=== PATIENT | female | born 1960 | race Caucasian/White ===

== ENCOUNTER 2017-11-29 07:51 | Inpatient (IN) | payer OTHER ==
[~2017-11-29] VITALS: Ht 167.6 cm; Wt 108.9 kg
[2017-11-29 08:04] VITALS: BP 144/64
[2017-11-29] MEDS ORDERED: OXYCONTIN20 M1 PO (08:07)
[2017-11-29] MEDS ORDERED: PROZAC20 MG PO (08:07)
[2017-11-29] MEDS ORDERED: MOBIC7.5 MG PO (08:07)
[2017-11-29] MEDS ORDERED: VITAMIN D2000 UNI1 PO (08:08)
[2017-11-29] MEDS ORDERED: FIBER GUMMIES1 EACH PO (08:08)
[2017-11-29] MEDS ORDERED: GRALISE600 MG PO (08:08)
[2017-11-29] MEDS ORDERED: ZINC CHELATE50 MG PO (08:09)
[2017-11-29] MEDS ORDERED: AMITRIPTYLINE H10 M3 PO (08:09)
[2017-11-29] MEDS ORDERED: SUPER B COMPLE150 MG PO (08:09)
[2017-11-29 08:23] LABS: HEMATOCRIT 39.6 % (37.0-47.0); HEMOGLOBIN 13.2 gm/dL (12.0-15.0); MCH 29.2 pg (26.0-34.0); MCHC 33.3 g/dL (28.0-37.0); MCV 87.5 fL (80.0-100.0); MPV 8.2 fl. (7.2-11.1); NUCLEATED RBCS 0 /100WBC; PLATELET COUNT* 215 thou/uL (150-400); RBC 4.52 mil/uL (4.20-5.00); WBC 14.9 thou/uL (4.0-11.0)
[2017-11-29 08:25] LABS: URINE BILIRUBIN NEGATIVE (Negative); URINE BLOOD NEGATIVE (Negative); URINE CLARITY CLEAR; URINE COLOR YELLOW; URINE GLUCOSE-RANDOM NEGATIVE (Negative); URINE KETONES NEGATIVE (Negative); URINE LEUKOCYTES-REFLEX NEGATIVE (Negative); URINE NITRITE-REFLEX NEGATIVE (Negative); URINE PROTEIN NEGATIVE (Negative); URINE UROBILINOGEN 0.2 E.U./dl (0.2-1.0)
[2017-11-29 08:27] LABS: CALCIUM 9.1 mg/dL (8.5-10.1); CREATININE 1.2 mg/dL (0.6-1.3); POTASSIUM 4.2 mmol/L (3.5-5.1)
[2017-11-29 08:32] LABS: TOTAL BILIRUBIN 0.3 mg/dL (<0.1-1.0); TOTAL PROTEIN 7.8 g/dL (6.4-8.2)
[2017-11-29 08:46] LABS: ABSOLUTE EOSINOPHILS 0.1 thou/uL (0.0-0.7); ABSOLUTE LYMPHOCYTES 1.5 thou/uL (0.8-5.3); ABSOLUTE NEUTROPHILS 12.2 thou/uL (1.6-8.1); PLATELET ESTIMATE ADEQUATE
--- NOTE | 2017-11-29 09:40 | NUR ---
KEO NOTIFIED UPON PT RETURN FROM CT. PT CONNECTED TO O2, PULSE OX AND BP MONITORS
--- NOTE | 2017-11-29 11:08 | EKG ---
[place] [address] ELECTROCARDIOGRAM REPORT Name: GERMAN KOEHLER Room: [facility]#: [id number] Admission: 11/29/17 Attend Phys: Discharge: Date of : 64 Report #: [id number] THIS REPORT FOR: //name// [facility] ED Test Date: 2017-11-29 Test Time: 08:31:25 Pat Name: GERMAN KOEHLER Department: Room: Gender: F Rehabilitation Manager: Anurag VALENCIA : 1960 Requested By: Simon Hathaway Order Number: [id number] MD: William Allen Measurements Intervals [place]mond Rate: 100 P: 42 FL: 131 QRS: 16 QRSD: 94 T: 20 QT: 336 QTc: 434 Interpretive Statements Sinus tachycardia Probable left atrial enlargement Low voltage, precordial leads No previous ECG available for comparison Electronically Signed On 11-29-2017 11:08:35 CAR [employer] by William Allen [email or web address] <ELECTRONICALLY SIGNED> By: William Allen MD, [facility] 11/29/17 1108 0831 0 William Allen MD, FACC /EPI
[2017-11-29 13:46] VITALS: BP 127/77
[2017-11-29 14:00] VITALS: BP 132/62
--- NOTE | 2017-11-29 14:09 | NUR ---
PATIENT ADMITTED FROM ER TO ROOM 108. ALERT AND ORIENTED. PAIN 10/10. STATES MORPHINE IS NOT WORKING. DR. BARRON NOTIFIED. PATIENT HAD MORPHINE PRIOR TO TRANSFER. IVF INFUSING ORDERED. ADMISSION HISTORY AND ASSESSMENT CHARTED. ORIENTED TO ROOM AND ENVIROMENT. EDUCATED ON FALL PREVENTION. O2 AT 2L. FAMILY AT BEDSIDE. WILL CONTINUE TO MONITOR.
--- NOTE | 2017-11-29 15:10 | NUR ---
VILLA PLACED FOR RETENTION. 1000 MLS EMPTIED AFTER PATIENT HAD VOIDED IN TOILET.
[2017-11-29 16:00] VITALS: BP 136/58
--- NOTE | 2017-11-29 16:50 | NUR ---
NOTIFIED GENERAL SURGERY RESIDENT THAT PATIENT WAS STILL IN SEVERE PAIN. PAIN MEDICATION HAD BEEN CHANGED TO DILAUDID WHICH DID NOT PROVIDE ANY RELIEF. VILLA HAS ALSO BEEN PLACED. PER DR. REHMAN, DR. DELEON WILL BE ROUNDING THIS EVENING. WILL CONTINUE TO MONITOR.
--- NOTE | 2017-11-29 18:32 | NUR ---
NOTIFIED PAIN IS NOT CONTROLLED ON 1MG OF DILAUDID. ORDERS TO INCREASE TO 2MG. WILL CONTINUE TO MONITOR.
--- NOTE | 2017-11-29 19:14 | NUR ---
TEMP 101.0, DR. BARRON NOTIFIED.
[2017-11-29 20:40] VITALS: BP 141/87
[2017-11-29 21:11] LABS: GLYCOHEMOGLOBIN (HGB A1C) 5.6 % (4.8-5.6)
[2017-11-30 05:07] LABS: ABSOLUTE LYMPHOCYTES 0.8 thou/uL (0.8-5.3); ABSOLUTE MONOCYTES 0.9 thou/uL (0.0-1.2); ABSOLUTE NEUTROPHILS 18.8 thou/uL (1.6-8.1); BASOPHILS 0.1 %; HEMATOCRIT 37.1 % (37.0-47.0); HEMOGLOBIN 11.9 gm/dL (12.0-15.0); MCH 28.7 pg (26.0-34.0); MCV 89.6 fL (80.0-100.0); MONOCYTES 4.3 %; MPV 8.5 fl. (7.2-11.1); NUCLEATED RBCS 0 /100WBC; PLATELET COUNT* 196 thou/uL (150-400); POLYS 91.6 %; RBC 4.14 mil/uL (4.20-5.00); RDW-CV 13.2 % (10.5-14.5); WBC 20.5 thou/uL (4.0-11.0)
[2017-11-30 05:38] LABS: ALBUMIN 3.5 g/dL (3.4-5.0); CALCIUM 8.5 mg/dL (8.5-10.1); CREATININE 0.9 mg/dL (0.6-1.3); POTASSIUM 4.2 mmol/L (3.5-5.1); TOTAL BILIRUBIN 0.5 mg/dL (<0.1-1.0); TOTAL PROTEIN 6.8 g/dL (6.4-8.2)
--- NOTE | 2017-11-30 08:06 | NUR ---
PATIENT HAS HAS C/O PAIN THROUGHOUT THE NIGHT. PAIN MEDICATION GIVEN ORDERED AND CHARTED. PATIENT HAS ALSO HAD SOME NAUSEA AND VOMITING. NAUSEA MEDICATION GIVEN. PATIENT HAS REMAINED NPO SINCE MIDNIGHT AND HAS HAD NO PAIN MEDICATIONS AT LEAST 4 HRS PRIOR TO PIPIDA SCAN THAT IS SCHEDULED THIS AM. VSS ON 2L 02 VIA NASAL CANNULA, ALTHOUGH PULSE TACHY. VILLA TO DEPENDENT DRAINAGE WITH CLEAR/YELLOW COLORED URINE OUTPUT.IV IN RIGHT AC-NS @ 150ML/HR. PATIENT INSTRUCTED TO USE CALL LIGHT WHEN NEEDING ASSISTANCE. HOURLY ROUNDS MADE. WILL CONTINUE WITH PLAN OF CARE AND NURSING TO MONITOR.
[2017-11-30 08:14] VITALS: BP 138/74
--- NOTE | 2017-11-30 12:50 | NUR ---
PATIENT RETURNED FROM PIPIDA SCAN. CRYING. CONTINUES TO REPORT SEVERE RLQ. SURGERY RESIDENT NOTIFIED OF SEVERE PAIN AND PIPIDA RESULTS. PATIENT DOES NOT ASK FOR PAIN MEDICATION. SHE IS USUALLY JUST FOUND DOUBLED OVER IN PAIN CRYING IN THE BED, OR STANDING AT EDGE OF BED.
--- NOTE | 2017-11-30 13:15 | NUR ---
SURGERY RESIDENT ON FLOOR- DR. REHMAN. INFORMED OF CONTINUED PAIN, AND INABILITY TO SIT IN BED AND REST. DR. REHMAN WILL NOTIFY DR. DELEON. DILAUDID, OXYCONTIN, AND GABAPENTIN GIVEN WITH A SIP OF WATER.
--- NOTE | 2017-11-30 15:23 | NUR ---
PT.OFF FLOOR FOR CT. WILL SEE AT ANOTHER TIME.
--- NOTE | 2017-11-30 16:16 | NUR ---
CT RESULTS CALLED TO GENERAL SURGERY. WILL CONTINUE TO MONITOR.
--- NOTE | 2017-11-30 16:37 | NUR ---
GENERAL SURGERY CALLED BACK AND MADE PATIENT NPO. PATIENT TO REMAIN ON IV ABX FOR POSSIBLE ENTERITIS. WE MAY PLACE NG IF PATIENT VOMITS AGAIN. REPEAT XRAY IN AM. PATIENT INFORMED OF THESE ORDERS. WILL CONTINUE TO MONITOR.
[2017-11-30 16:54] VITALS: BP 140/93
--- NOTE | 2017-11-30 17:00 | NUR ---
PATIENT REMAINS ALERT AND ORIENTED. IVF INFUSING ORDERED. STILL RATES PAIN 8-10/10. DILAUDID 2MG EVERY 4 HOURS. AMBULATES AD OZZY. VILLA REMAINS IN PLACE DUE TO RETENTION. AFEBRILE. O2 SAT 92% ON RA. NPO. MOUTH SWABS PROVIDED. CALL LIGHT WITHIN REACH. WILL CONTINUE TO MONITOR.
[2017-12-01 01:15] VITALS: BP 136/77
[2017-12-01 07:50] VITALS: BP 144/83
[2017-12-01 08:00] VITALS: BP 144/83
[2017-12-01 08:08] LABS: ABSOLUTE EOSINOPHILS 0.1 thou/uL (0.0-0.7); ABSOLUTE LYMPHOCYTES 1.3 thou/uL (0.8-5.3); ABSOLUTE MONOCYTES 0.6 thou/uL (0.0-1.2); ABSOLUTE NEUTROPHILS 10.4 thou/uL (1.6-8.1); BASOPHILS 0.2 %; EOSINOPHILS 0.7 %; LYMPHOCYTES 10.8 %; MCH 28.7 pg (26.0-34.0); MCHC 32.3 g/dL (28.0-37.0); MCV 89.1 fL (80.0-100.0); MPV 7.9 fl. (7.2-11.1); NUCLEATED RBCS 0 /100WBC; PLATELET COUNT* 177 thou/uL (150-400); POLYS 83.3 %; RBC 3.82 mil/uL (4.20-5.00); RDW-CV 13.3 % (10.5-14.5); WBC 12.5 thou/uL (4.0-11.0)
--- NOTE | 2017-12-01 08:20 | NUR ---
PATIENT HAS SLEPT WELL THROUGHOUT THE NIGHT. PAIN HAS BETTER CONTROLLED. PAIN MEDICATION GIVEN VIA IV AND CHARTED. NAUSEA MEDICATION GIVEN FOR C/O NAUSEA. PATIENT HAS VERY SMALL AMOUNT OF EMESIS X 1. PATIENT HAS REMAINED NPO. VILLA TO DEPENDENT DRAINAGE WITH YELLOW URINE OUTPUT. VSS ON RA. IV IN RIGHT AC-SL. IV IN LEFT HAND-NS @ 150ML/HR. IV ABT GIVEN WITHOUT ANY ADVERSE SIDE EFFECTS NOTED. PATIENT INSTRUCTED TO USE CALL LIGHT WHEN NEEDING ASSISTANCE. HOURLY ROUNDS MADE. WILL CONTINUE WITH PLAN OF CARE AND NURSING TO MONITOR.
[2017-12-01 08:26] LABS: CALCIUM 8.4 mg/dL (8.5-10.1); CREATININE 0.8 mg/dL (0.6-1.3); POTASSIUM 3.7 mmol/L (3.5-5.1)
[2017-12-01 12:57] VITALS: BP 152/88
[2017-12-01 15:36] VITALS: BP 151/86
--- NOTE | 2017-12-01 15:57 | NUR ---
I agree with inpatient nursing aide, Karen Peralta's, assessment and VS documentation.
--- NOTE | 2017-12-01 16:47 | NUR ---
PT.HAD JUST WALKED IN [place]. STATED SHE FEELS MUCH BETTER. SHE SAID SHE LIVES WITH HER AND THEIR 12 Y.O.GRANDSON LIVES WITH THEM. IS SUPPORTIVE. GRANDSON HELPS ALSO. SHE IS INDEPENDENT. DOES NOT USE ANY DME NOR HAD HH. PT.PLANS TO HAVE SURGERY AT A LATER DATE.
--- NOTE | 2017-12-01 18:39 | NUR ---
PATIENT HAS BEEN A/O X 4 THIS SHIFT. MEDICATED FOR ABDOMINAL PAIN X 1 WITH IV PAIN MEDS AT BEGINNING OF SHIF. PATIENT GIVEN ZOFRAN X 1 THIS AM, NO FURTHER NAUSEA THIS SHIFT. PATIENT UP AD OZZY IN ROOM. PATIENT'S VILLA CATHETER REMOVED AND ABLE TO URINATE AFTER CATHETER BEING DISCONTINUED. PATIENT HAVING BMs THIS SHIFT. PATIENT TAKING ICE CHIPS WITHOUT ANY DIFFICUTLY. WBC TRENDING DOWN. HAS BEEN AFEBRILE THIS SHIFT. STATES FEELING BETTER OVERALL. HOURLY ROUNDING COMPLETED. CALL LIGHT WITHIN REACH. WILL CONTINUE WITH PLAN OF CARE.
[2017-12-01 20:40] VITALS: BP 123/74
[2017-12-02 05:34] LABS: HEMATOCRIT 34.2 % (37.0-47.0); HEMOGLOBIN 11.1 gm/dL (12.0-15.0); MCH 29.1 pg (26.0-34.0); MCHC 32.4 g/dL (28.0-37.0); MCV 89.9 fL (80.0-100.0); MPV 7.8 fl. (7.2-11.1); RBC 3.8 mil/uL (4.20-5.00); RDW-CV 13.3 % (10.5-14.5); WBC 9.5 thou/uL (4.0-11.0)
[2017-12-02 05:56] LABS: CALCIUM 8.2 mg/dL (8.5-10.1); CREATININE 0.8 mg/dL (0.6-1.3)
--- NOTE | 2017-12-02 06:55 | NUR ---
PATIENT HAS SLEPT WELL THROUGHOUT THE NIGHT WITHOUT ANY ISSUES. PAIN WELL CONTROLLED. MEDICATIONS GIVEN ORDERED AND CHARTED. ASSESSENT CHARTED. VSS ON 2L 02 VIA NASAL CANNULA. NEW IV INSERTED IN RIGHT FOREARM- NS @ 150ML/HR. IV ABT GIVEN WITHOUT ANY ADVERSE SIDE EFFECTS NOTED. PATIENT STATES THAT SHE IS FEELING MUCH BETTER. PATIENT INSTRUCTED TO USE CALL LIGHT WHEN NEEDING ASSISTANCE. HOURLY ROUNDS MADE. WILL CONTINUE WITH PLAN OF CARE AND NURSING TO MONITOR.
[2017-12-02 08:00] VITALS: BP 140/82
[2017-12-02 15:54] VITALS: BP 139/88
--- NOTE | 2017-12-02 18:14 | NUR ---
ALERT AND ORIENTED X4. UP AD OZZY DURING AMBULATION. IV IS PATENT AND INFUSING. PAIN BEING MANAGED WITH PO PAIN MEDICATION. DENIES NAUSEA. TOLERATING FULL LIQUID DIET. VSS ON ROOM AIR. HOURLY ROUNDS HAVE BEEN MAINTAINED THROUGHOUT SHIFT. CALL LIGHT IS WITHIN REACH. NURSING WILL CONTINUE TO MONITOR.
[2017-12-02 19:30] VITALS: BP 140/87
[2017-12-03] MEDS ORDERED: BUTALB-APAP-CA1 EACH PO (02:37)
[2017-12-03 04:27] LABS: HEMATOCRIT 35.6 % (37.0-47.0); HEMOGLOBIN 11.6 gm/dL (12.0-15.0); MCH 28.8 pg (26.0-34.0); MCHC 32.5 g/dL (28.0-37.0); MCV 88.7 fL (80.0-100.0); MPV 7.2 fl. (7.2-11.1); RBC 4.01 mil/uL (4.20-5.00); RDW-CV 13.2 % (10.5-14.5); WBC 7.1 thou/uL (4.0-11.0)
[2017-12-03 04:41] LABS: CALCIUM 8.1 mg/dL (8.5-10.1); CREATININE 0.8 mg/dL (0.6-1.3); POTASSIUM 3.4 mmol/L (3.5-5.1)
--- NOTE | 2017-12-03 04:49 | NUR ---
PATIENT HAS REMAINED ALERT AND ORIENTED X 4 THROUGHOUT THE SHIFT AND RESTING QUIETLY AT HOURLY ROUNDS. HAS DENIED ABDOMINAL PAIN. STATED HEADACHE WITH ORAL MEDS FOR HEADACHE X 1. DENIES NAUSEA. STATED BM YESTERDAY. VOIDING WITHOUT DIFFICULTY. UP INDEPENDENTLY IN THE ROOM. VITAL SIGNS STABLE. REACHING DISCHARGE GOALS. CONTINUE TO MONITOR.
[2017-12-03 08:03] VITALS: BP 137/86
[2017-12-03 16:00] VITALS: BP 156/87
--- NOTE | 2017-12-03 17:00 | NUR ---
PT.WAS TO DISCHARGE TODAY WITH HOME O2. R.T. SATS SHOWED PT.NEEDED 4L/NC WITH EXERCISE. SAT ALSO WAS LOW AT REST BUT DID NOT QUALIFY FOR O2. HAD SPOKEN WITH [facility] [phone]. SHE SAID THEY DO ACCEPT PT.'S INSURANCE. NOTIFIED OF SATURATIONS AND DISCHARGE WAS CANCELLED. NOTIFIED [facility]LD[facility].
--- NOTE | 2017-12-03 17:25 | NUR ---
ASSUMED CARE OF PATIENT AFTER REPORT THIS MORNING. PATIENT AWAKE, ALERT, AND ORIENTED APPROPRIATELY. PHYSICAL ASSESSMENT COMPLETED AND CHARTED. NO COMPLAINTS OF PAIN THIS SHIFT. SCHEDULED MEDICATIONS GIVEN, SEE EMAR FOR DOCUMENTATION. VITAL SIGNS STABLE. OXYGEN SATURATION WITHIN NORMAL LIMITS ON 2.5 LPM. COMPLETED REST AND EXERCISE OXIMETRY TEST TODAY WITH RESPIRATORY THERAPY. OXYGEN SATURATION DROPPED TO 82% WITHOUT OXYGEN DURING EXERCISE. PHYSICIAN NOTIFIED AND DISCHARGE CANCELLED. PATIENT NOW REQUIRES TO WEAR OXYGEN ALL THE TIME. PULMONOLOGY CONSULTED. CHEST XRAY OBTAINED. PATIENT TRANSFERS AND AMBULATES INDEPENDENTLY IN ROOM WITHOUT DIFFICULTY. USES CALL LIGHT APPROPRIATELY. DENIES NEEDS. CALL LIGHT WITHIN REACH. NURSING WILL CONTINUE TO MONITOR.
[2017-12-03 21:00] VITALS: BP 157/103
[2017-12-04] VITALS: BP 138/99
[2017-12-04 03:49] VITALS: BP 146/97
--- NOTE | 2017-12-04 06:14 | NUR ---
UP AD OZZY IN ROOM WITH O2 AT 2L AT REST AND 4L WITH EXERCISE. BLOOD PRESSURE ELEVATED AT BEGINNING OF SHIFT AND DR NOTIFIED. DR SAID TO JUST MONITOR. LAST B/P THIS AM BETTER AT 146/97. PAIN MEDICATION GIVEN X2 FOR HEADACHE AND BACK PAIN. NAUSEA MEDICATION GIVEN THIS AM X1. O2 SAT 97 AT REST. CALL LIGHT WITHIN REACH.
--- NOTE | 2017-12-04 06:51 | CON ---
[address] [address] CONSULTATION Name: ZAKIAGERMAN L Room: [address] IN M.R.#: [id number] Admission: 11/29/17 Attend Phys: Chela Ryan Discharge: Date of : 64 Report #: [id number] THIS REPORT FOR: //name// CC: Lili Ontiveros DATE OF SERVICE: 12/03/2017 ATTENDING PHYSICIAN: Lili Arthur MD LOCATION: Room No. [address] [facility]. INDICATION FOR CONSULTATION: Abnormal chest x-ray and hypoxemia. HISTORY OF PRESENT ILLNESS: The patient is a 57-year-old female, a recent smoker, who quit 7 months ago. She was admitted to the hospital with abdominal pain. It started in the right upper quadrant. She had some nausea and no vomiting. Denies any diarrhea. She takes OxyContin for low back pain. The pain was sharp and severe. She had some gallstones. She passed the gallstone. Surgery was initially going to take the patient for cholecystectomy, but decided against it and her pain has subsided before she was going to be discharged home, this was several days ago. She was admitted on 11/29. Before the patient was going to be discharged today, her room air O2 sat was dropping somewhat and she did room air oximetry, went down to 82%. She is now 2-1/[address] abdomen, it appears she has a left hilar fullness of about 2.5 cm. No definite mass is noted. No other infiltrates or masses were noted on the lower cuts. Chest x-ray is pending at this time. The patient states she may have had a chest x-ray a year ago at her primary care physician's office as far as she knew was negative. She denies any fever, chills, sweats, unexplained weight loss or hemoptysis. PAST MEDICAL HISTORY: She has had chronic back pain. She has had previous laminectomies. She has had some mild hypertension. She has had no prior history of COPD, just recently has had cholelithiasis. OUTPATIENT MEDICATIONS: Include fluoxetine 20 mg daily, oxycodone 20 mg t.i.d., meloxicam 7.5 mg b.i.d., vitamin D3 2000 units daily, gabapentin 600 mg 6 times a day and amitriptyline 10 mg at bedtime. FAMILY HISTORY: Negative for premature cardiopulmonary disease. SOCIAL HISTORY: The patient is . She is a smoker of 1 to 1-1/2 packs a day, had a 35-50 pack year history of smoking, quit 7 months ago. Denies any alcohol or illicit drug use. States she is on disability. [place] [address] CONSULTATION Name: KAREN KOEHLERTEAGAN Martines Room: [address] IN [facility]#: [id number] Admission: 11/29/17 Attend Phys: Chela Ryan Discharge: Date of : 64 Report #: [id number] [facility]. She states she is on disability for chronic back pain. REVIEW OF SYSTEMS: A 14-point review of systems reviewed and negative except for pertinent positives noted in the HPI. She denies any asthma, COPD or obstructive sleep apnea. Occasionally, when she gets bronchitis once or twice a year, her physician will give her ProAir inhaler for that. PHYSICAL EXAMINATION: GENERAL: Pleasant, alert 57-year-old female on oxygen 2-1/2 liters in no acute distress. VITAL SIGNS: Blood pressure is 137/86, heart rate 84, respirations 16, temperature is 36.6 degrees. She is 5 feet 6 inches tall, weight is 109 kilograms or 230 pounds and BMI is 39. HEENT: Unremarkable. Nares and pharynx are clear. NECK: Supple without any cervical or supraclavicular adenopathy. Neck veins are flat. CHEST: Shows a few rhonchi in the left upper lobe anteriorly with prolonged expiratory phase. Left lower lobe otherwise is clear. Right chest is fairly clear. CARDIOVASCULAR: Regular rate and rhythm without murmur, gallop or rub. ABDOMEN: Obese without masses or megaly. EXTREMITIES: No calf tenderness. No cyanosis, clubbing or edema. NEUROLOGIC: Grossly intact. LABORATORY DATA: From today, hemoglobin 11.6, white count 7100, normal differential and platelets 216,000 and white count has come down the whole time she has been in the hospital. Her sodium is 145, potassium 3.4, being repleted. BUN 7, creatinine 0.8, estimated glucose 74, regular glucose is 112, calcium is 8.1. Room air sats started about 88-87%. She went down to 82% with ambulation about 100 feet and then on 2-1/2 liters she is right around 93%. Chest x-ray is pending. Abdominal pelvis CT, which I did get a look at shows some possible left hilar fullness at 2.5 cm. On the abdominal series, I do not really see the hilar adenopathy all that well. IMPRESSION: 1. Hypoxemia, etiology unclear, may have some mild obstructive airways disease. I do not think congestive heart failure. 2. Possible left hilar mass, the patient with smoking history. Plan: We will see what the chest x-ray shows, I may consider a CT chest and then proceed from there. If we need to do an outpatient fiberoptic bronchoscopy to rule out any endobronchial lesion and obtain specimens 3. Gallstones with abdominal pain. PLAN: Again await the chest x-ray, may need a CT of the chest then, probably may need to go on the oxygen 2-4 weeks if she continues to [place] [address] CONSULTATION Name: GERMAN KOEHLER Bobbi Room: [address] IN .R.#: [id number] Admission: 11/29/17 Attend Phys: Chela Ryan Discharge: Date of : 64 Report #: [id number] workup will include possibly even a CT angio of the chest to rule out occult DVT or pulmonary emboli and then also full PFTs as an outpatient as well as a sleep study. Rule out sleep apnea and/or COPD. If she does have a 2 cm left hilar mass, then she may need again either an inpatient or outpatient bronchoscopy. We will add some montelukast, some oral bronchodilators and see if she will clinically improve. Also on the CT chest, we will look and see and make sure she does not have any upper lobe emphysema from her previous smoking history. Thanks again for allowing us to participate in this lady's care. We will follow up along with you. Hopefully, she will just be in another day or two. <ELECTRONICALLY SIGNED> By: Clyde Ventura MD 12/04/17 0651 [id number] Ventura MD /nt
[2017-12-04 08:20] VITALS: BP 119/75
--- NOTE | 2017-12-04 11:55 | NUR ---
Following through dc. It Pt continues to require home o2, we will need a hard copy RX, that is signed and includes Drs NPI number. If Pt is ready to dc this weekend, the o2 order, H&P, current ex ox sats, and facesheet need to be faxed to [employer] at f:[phone], contact Maru at [employer] to arrange delivery of tank to Pt's room, her number is [phone]
[2017-12-04 16:00] VITALS: BP 128/58
--- NOTE | 2017-12-04 16:56 | NUR ---
PATIENT ALERT AND ORIENTED X 4. VITAL SIGNS STABLE ON 2L O2 NASAL CANULA. UP AD OZZY IN ROOM AND AMBULATING IN HALLWAY. PAIN BEING MANAGED WITH PO PAIN MEDICATIONS. REFUSES SCD'S. EDUCATED ON IMPORTANCE OF SCD'S. HOURLY ROUNDS MAINTAINED THROUGHOUT THE SHIFT. CALL LIGHT WITHIN REACH. NURSING WILL CONTINUE TO MONITOR.
[2017-12-04 21:40] VITALS: BP 141/90
--- NOTE | 2017-12-05 05:13 | NUR ---
ALERT AND ORIENTED X4. UP AD OZZY IN ROOM WITH O2 AT 2.5L/NC. O2 SAT AT REST 94%. C/O RLQ PAIN. PO AND IV PAIN MEDICATION GIVEN X2 AND HELPFUL. CALL LIGHT WITHIN REACH. WILL CONTINUE MONITOR.
[2017-12-05 08:00] VITALS: BP 122/75
--- NOTE | 2017-12-05 16:49 | NUR ---
PATIENT ALERT AND ORIENTED X 4. VITAL SIGNS STABLE. O2 SAT 95% ON ROOM AIR. OXYGEN IN ROOM, IF NEEDED. UP AD OZZY IN ROOM AND AMBULATING IN THE HALLWAY WITHOUT OXYGEN. IV PATENT AND SALINE LOCKED. PAIN BEING MANAGED WITH PO AND IV PAIN MEDICATIONS. PATIENT REFUSED SCD'S. EDUCATED ON THE IMPORTANCE OF SCD'S. HOURLY ROUNDS MAINTAINED THROUGHOUT THE SHIFT. CALL LIGHT WITHIN REACH. NURSING WILL CONTINUE TO MONITOR.
[2017-12-05 18:47] VITALS: BP 140/76
[2017-12-05 20:30] VITALS: BP 139/79
--- NOTE | 2017-12-06 05:25 | NUR ---
ALERT AND ORIENTED X4. UP AD OZZY IN ROOM WITHOUT DIFFICULTY. AMBULATED IN HALLWAYS WITHOUT DIFFICULTY OR C/O SOA. O2 SAT CHECKED AT REST 94% ON ROOM AIR. DENIES COUGH. MIRALAX GIVEN FOR C/O CONSTIPATON. PAIN MEDICATION GIVEN X2 FOR HEADACHE. CALL LIGHT WITHIN REACH.
[2017-12-06 08:49] VITALS: BP 120/76
[2017-12-06] MEDS ORDERED: FLOMAX0.4 MG PO (09:24)
[2017-12-06] MEDS ORDERED: SINGULAIR 10 MG10 M1 PO (09:25)
[2017-12-06] MEDS ORDERED: MIRALAX17 GM PO (09:47)
[2017-12-06 09:48] VITALS: BP 120/76
--- NOTE | 2017-12-06 10:04 | NUR ---
ASSUMED CARE OF PATIENT AFTER REPORT THIS MORNING. PATIENT AWAKE, ALERT, AND ORIENTED APPROPRIATELY. PHYSICAL ASSESSMENT COMPLETED AND CHARTED. NO COMPLAINTS OF PAIN. VITAL SIGNS STABLE. OXYGEN SATURATION WITHIN NORMAL LIMITS ON ROOM AIR. PATIENT HAS BEEN UP AD OZZY. GIVEN SCHEDULED MEDICATIONS, SEE EMAR FOR DOCUMENTATION. RECEIVED ORDERS TO DISCHARGE PATIENT TO HOME. DISCHARGE PAPERWORK COMPLETED AND CHECKED BY SECOND NURSE. WAITING FOR PATIENT'S RIDE TO DISCUSS DISCHARGE INSTRUCTIONS. IV DISCONTINUED. NURSING WILL CONTINUE TO MONITOR.
--- NOTE | 2017-12-06 10:26 | NUR ---
DISCUSSED DISCHARGE PAPERWORK WITH PATIENT. SIGNED BY ALL APPROPRIATE PARTIES. PATIENT DISCHARGED AT THIS TIME.
--- NOTE | 2017-12-06 14:42 | 2DMMODE ---
[place] [address] 2 D/M-MODE ECHOCARDIOGRAM Name: ZAKIAGERMAN Room: [address] IN [facility]#: [id number] Admission: 11/29/17 Attend Phys: Lili Arthur Discharge: 12/06/17 Date of : 64 Date of Service: 12/06/17 1442 Report #: [id number] THIS REPORT FOR: //name// APPROVED REPORT Study performed: 12/06/2017 09:39:01 EXAM: Comprehensive 2D, Doppler, and color-flow Echocardiogram Patient Location: In-Patient Room #: [facility] Status: routine BSA: 2.16 HR: 91 bpm BP: 120/76 mmHg Rhythm: NSR Other Information Study Quality: Good Indications Congestive Heart Failure 2D Dimensions LVEF(%): 59.20 (>50%) IVSd: 12.06 (7-11mm) LVOT Diam: 20.61 (18-24mm) LVDd: 49.00 mm PWd: 10.23 (7-11mm) Ascending Ao: 31.64 (22-36mm) LVDs: 33.58 (25-40mm) Aortic Root: 31.99 mm Vale's LVEF: 59.20 % Volumes Left Atrial Volume (Systole) LA ESV Index: 28.20 mL/m2 Aortic Valve AoV Peak Kevin.: 1.36 m/s AO Peak Gr.: 7.36 mmHg LVOT Max P.71 mmHg AO Mean Gr.: 4.26 mmHg LVOT Mean P.25 mmHg LVOT Max V: 1.09 m/s AO V2 VTI: 26.49 cm LVOT Mean V: 0.69 m/s DILIP (VTI): 2.56 cm2 LVOT V1 VTI: 20.31 cm Mitral Valve E/A Ratio: 1.03 [place] [address] 2 D/M-MODE ECHOCARDIOGRAM Name: GERMAN KOEHLER Room: [address]#: [id number] Admission: 11/29/17 Attend Phys: Lili Arthur Discharge: 12/06/17 Date of : 64 Date of Service: 12/06/17 1442 Report #: [id number] MV Decel. Time: 306.65 ms MV E Max Kevin.: 0.69 m/s MV PHT: 88.93 ms MVA (PHT): 2.47 cm2 TDI E/Lateral E': 6.27 E/Medial E': 5.75 Medial E' Kevin.: 0.12 m/s Lateral E' Kevin.: 0.11 m/s Pulmonary Valve PV Peak Kevin.: 0.94 m/s PV Peak Gr.: 3.54 mmHg Left Ventricle The left ventricle is normal size. There is normal LV segmental wall motion. There is normal left ventricular wall thickness. Left ventricular systolic function is normal. The left ventricular ejection fraction is within the normal range. LVEF is 60-65%. Grade I - abnormal relaxation pattern. Right Ventricle The right ventricle is normal size. The right ventricular systolic function is normal. Atria The left atrium size is normal. The right atrium size is normal. Aortic Valve The aortic valve is normal in structure. No aortic regurgitation is present. There is no aortic valvular stenosis. Mitral Valve The mitral valve is normal in structure. Mild mitral regurgitation. No evidence of mitral valve stenosis. Tricuspid Valve The tricuspid valve is normal in structure. Unable to assess PA pressure. Trace tricuspid regurgitation. Pulmonic Valve The pulmonary valve is normal in structure. There is no pulmonic valvular regurgitation. Great Vessels The aortic root is normal in size. IVC [place] [address] 2 D/M-MODE ECHOCARDIOGRAM Name: KOEHLERGERMAN Room: [address] IN M.R.#: [id number] Admission: 11/29/17 Attend Phys: Lili Arthur Discharge: 12/06/17 Date of : 64 Date of Service: 12/06/17 1442 Report #: [id number] collapses with >50% inspiration Pericardium There is no pericardial effusion. <Conclusion> The left ventricle is normal size. There is normal left ventricular wall thickness. Left ventricular systolic function is normal. The left ventricular ejection fraction is within the normal range. LVEF is 60-65%. Grade I - abnormal relaxation pattern. The right ventricle is normal size. The left atrium size is normal. The aortic valve is normal in structure. The mitral valve is normal in structure. Mild mitral regurgitation. The tricuspid valve is normal in structure. IVC is normal in size and collapses with >50% inspiration There is no pericardial effusion. There is normal LV segmental wall motion. <ELECTRONICALLY SIGNED> By: John Sharif MD, FACC 12/06/17 144 [id number] 144 John Sharif MD, FACC /INF
== END 2017-12-06 10:29 | disposition home or self-care (01) | DRG 371 ==
LOC: M.ERS 07:51 → M.ORTHSURG 12:42 → M.TBA-ER 12:42 → M.ORTHSURG 12:54
PROVIDERS: Emergency Medicine; Surgery; ADMIT Internal Medicine
PROC: B24BZZ4 Ultrasonography of Heart with Aorta, Transesophageal (ICD-10-PCS; principal; 2017-12-06)
DX: A04.9 Bacterial intestinal infection, unspecified (principal); J96.01 Acute respiratory failure with hypoxia; B17.9 Acute viral hepatitis, unspecified; N13.4 Hydroureter; J98.11 Atelectasis; R65.10 Systemic inflammatory response syndrome (SIRS) of non-infectious origin without acute organ dysfunction; R33.9 Retention of urine, unspecified; I11.0 Hypertensive heart disease with heart failure; K82.8 Other specified diseases of gallbladder; J44.9 Chronic obstructive pulmonary disease, unspecified; I50.9 Heart failure, unspecified; K80.70 Calculus of gallbladder and bile duct without cholecystitis without obstruction; E66.9 Obesity, unspecified; Z87.891 Personal history of nicotine dependence; Z68.38 Body mass index [BMI] 38.0-38.9, adult; Z79.4 Long term (current) use of insulin; Z79.899 Other long term (current) drug therapy

== ENCOUNTER → 2019-01-19 | Outpatient (CLI) | payer OTHER ==
[~2019-01-19] MED LIST: AMITRIPTYLINE H10 M3 PO; BUTALB-APAP-CA1 EACH PO; FIBER GUMMIES1 EACH PO; FLOMAX0.4 MG PO; GRALISE600 MG PO; MIRALAX17 GM PO; MOBIC7.5 MG PO; OXYCONTIN20 M1 PO; PROZAC20 MG PO; SINGULAIR 10 MG10 M1 PO; SUPER B COMPLE150 MG PO; VITAMIN D2000 UNI1 PO; ZINC CHELATE50 MG PO
== END ==
LOC: M.RAD 13:55
DX: Z12.31 Encounter for screening mammogram for malignant neoplasm of breast (principal)